=== PATIENT | female | born 1990 | race Caucasian/White ===

== ENCOUNTER 2017-04-22 08:30 | Inpatient (IN) | payer OTHER ==
[2017-04-22] MEDS ORDERED: CARBOPROST 250 MCG/ML SOL IM PRN (21:05)
[2017-04-22] MEDS ORDERED: MEPIVACAINE HCL 1% MPF 30 ML SOL INFIL PRN (21:05)
[2017-04-22] MEDS ORDERED: LACTATED RINGERS 1,000 ML IV PRN (21:05)
[2017-04-22] MEDS ORDERED: SODIUM CHLORIDE 0.9% FLUSH 10 ML SOL IV PRN (21:05)
[2017-04-22] MEDS ORDERED: OXYTOCIN 10000 MU/ML SOL IM PRN (21:05)
[2017-04-22] MEDS ORDERED: FENTANYL 100MCG/2ML SOL IV PRN (21:05)
[2017-04-22] MEDS ORDERED: METHYLERGONOVINE MALEATE 0.2 MG/ML SOL IM PRN (21:05)
[2017-04-22 21:07] LABS: BASOPHILS % (AUTO) 0 % (0-3); EOSINOPHILS % (AUTO) 0 % (0-9); HEMATOCRIT 36 % (35-47); MEAN CORPUSCULAR HGB CONC 33.7 gm/dl (32.0-36.0); MEAN CORPUSCULAR VOLUME 92 fL (81-99); MONOCYTES % (AUTO) 5.9 % (0-12); NEUTROPHILS % (AUTO) 74.7 % (37-80)
[2017-04-23] MEDS ORDERED: TERBUTALINE SULFATE 1 MG/ML SOL SC PRN (04:38)
[2017-04-23] MEDS ORDERED: LACTATED RINGERS 1,000 ML IV SCH (04:45)
[2017-04-23] MEDS ORDERED: OXYTOCIN 10000 MU/ML 20,000 MU in LACTATED RINGERS 1,000 ML IV SCH (04:45)
[2017-04-23] MEDS ORDERED: LACTATED RINGERS 1,000 ML ONE (05:15)
[2017-04-23] MEDS ORDERED: OXYTOCIN 10000 MU/ML SOL ONE ×5 (05:15→22:27)
[2017-04-23] MEDS: SODIUM CHLORIDE 0.9% FLUSH 10 ML SOL IV SCH ×3 (06:01→21:13)
[2017-04-23] MEDS ORDERED: WITCH HAZEL 1 EA PAD TOP PRN (08:03)
[2017-04-23] MEDS ORDERED: NALBUPHINE HCL 20 MG/ML SOL IV PRN (15:03)
[2017-04-23] MEDS ORDERED: DIPHENHYDRAMINE 50 MG/ML SOL IV PRN (15:03)
[2017-04-23] MEDS ORDERED: EPHEDRINE SULFATE 50 MG/ML SOL IV PRN (15:03)
[2017-04-23] MEDS ORDERED: NALOXONE HYDROCHLORIDE 0.4 MG/ML SOL IV PRN (15:03)
[2017-04-23 15:19] LABS: BASOPHILS % (AUTO) 0 % (0-3); EOSINOPHILS % (AUTO) 0 % (0-9); HEMATOCRIT 37 % (35-47); MEAN CORPUSCULAR HGB CONC 34.6 gm/dl (32.0-36.0); MEAN CORPUSCULAR VOLUME 91 fL (81-99); MONOCYTES % (AUTO) 4.7 % (0-12); NEUTROPHILS % (AUTO) 91.9 % (37-80)
[2017-04-23 15:37] LABS: ALBUMIN 2.7 gm/dl (3.4-5.0); POTASSIUM 3.8 mMol/L (3.5-5.1)
[2017-04-23] MEDS: LACTATED RINGERS 1,000 ML IV SCH ×4 (15:40→20:52)
[2017-04-23] MEDS ORDERED: FENTANYL 250 MCG/ 5ML SOL ONE (16:08)
[2017-04-23] MEDS ORDERED: LIDOCAINE HCL 2% MPF SOL ONE ×2 (16:09→21:44)
[2017-04-23] MEDS ORDERED: ROPIVACAINE HYDROCHLORIDE 5 MG/ML SOL ONE (16:09)
[2017-04-23 17:06] LABS: APPEARANCE,URINE Clear; BILIRUBIN,URINE 1+ (NEGATIVE); COLOR,URINE Dark yellow; GLUCOSE, URINE (UA) NEGATIVE (NEGATIVE); KETONES,URINE 4+ (NEGATIVE); LEUKOCYTE ESTERASE ,URINE NEGATIVE (NEGATIVE); NITRATE,URINE NEGATIVE (NEGATIVE); OCCULT BLOOD,URINE TRACE INTACT (NEG-TRACE); PH,URINE 5.5; UROBILINOGEN,URINE 0.2 (0.2-1.0 EU)
[2017-04-23 17:45] LABS: ICTOTEST,URINE NEGATIVE (NEGATIVE)
[2017-04-23] MEDS: ACETAMINOPHEN 500 MG 500 MG TAB PO SCH (21:06)
[2017-04-23] MEDS ORDERED: CEFAZOLIN SODIUM 1 GM PDS IVP ONE (21:38)
[2017-04-23] MEDS ORDERED: CITRIC ACID/SODIUM CITRATE SOL PO ONE (21:38)
[2017-04-23] MEDS ORDERED: FENTANYL 100MCG/2ML SOL ONE ×2 (22:11→22:48)
[2017-04-23] MEDS ORDERED: MIDAZOLAM 2 MG/2 ML SOL ONE (22:13)
[2017-04-23] MEDS ORDERED: PROPOFOL 10 MG/ML EMU IV ONE (22:14)
[2017-04-23] MEDS ORDERED: LACTATED RINGERS 1,000 ML with OXYTOCIN 10000 MU/ML 20 MU IV ONE ×2 (22:17→22:37)
[2017-04-23] MEDS ORDERED: MORPHINE SULFATE 0.5 MG/ML SOL ONE (22:30)
[2017-04-23] MEDS ORDERED: KETOROLAC TROMETHAMINE 30 MG/ML SOL ONE (23:06)
[2017-04-23] MEDS: MORPHINE SULFATE 10 MG/ML SOL ONE ×2 (23:17→23:28)
[2017-04-24] MEDS ORDERED: BENZOCAINE/MENTHOL 1 SPR TOP PRN (01:32)
[2017-04-24] MEDS ORDERED: FLEET ENEMA PR PRN (01:32)
[2017-04-24] MEDS ORDERED: ONDANSETRON HCL 4 MG/2 ML SOL IV PRN (01:32)
[2017-04-24] MEDS ORDERED: DIPHENHYDRAMINE 25 MG CAP PO PRN (01:32)
[2017-04-24] MEDS ORDERED: METHYLERGONOVINE MALEATE 0.2 MG TAB PO PRN (01:32)
[2017-04-24] MEDS ORDERED: WITCH HAZEL 1 EA PAD TOP PRN (01:32)
[2017-04-24] MEDS ORDERED: TEMAZEPAM 15MG 15 MG CAP PO PRN (01:32)
[2017-04-24] MEDS ORDERED: BISACODYL 10 MG SUP PR PRN (01:32)
[2017-04-24 01:53] LABS: ABO B; RH TYPE Positive
[2017-04-24 01:59] VITALS: RESP 20
[2017-04-24] MEDS: LACTATED RINGERS 1,000 ML IV SCH ×6 (02:00→18:32)
[2017-04-24 02:02] LABS: ANTIBODY SCREEN Negative
[2017-04-24] MEDS ORDERED: CEFAZOLIN (PREMIX) 1 GM 1 GM/50 ML SOL IV SCH (03:39)
[2017-04-24] MEDS: SODIUM CHLORIDE 0.9% FLUSH 10 ML SOL IV SCH ×3 (04:16→20:37)
[2017-04-24] MEDS: DOCUSATE SODIUM 100 MG SGL PO SCH ×2 (08:39→20:41)
[2017-04-24] MEDS: KETOROLAC TROMETHAMINE 30 MG/ML SOL IV PRN ×3 (08:39→20:41)
[2017-04-24] MEDS: ACETAMINOPHEN 500 MG 500 MG TAB PO SCH ×3 (12:02→20:37)
[2017-04-24] MEDS: APAP/HYDROCODONE 325/5 TAB PO PRN ×3 (12:40→22:51)
[2017-04-25] MEDS: LACTATED RINGERS 1,000 ML IV SCH ×2 (02:23→05:35)
[2017-04-25] MEDS: IBUPROFEN 600 MG TAB PO PRN ×2 (04:27→14:59)
[2017-04-25] MEDS ORDERED: IBUPROFEN 600 MG TAB ONE (04:27)
[2017-04-25] MEDS: SODIUM CHLORIDE 0.9% FLUSH 10 ML SOL IV SCH ×2 (05:34→12:40)
[2017-04-25 09:19] LABS: BASOPHILS % (AUTO) 0 % (0-3); EOSINOPHILS % (AUTO) 0 % (0-9); HEMATOCRIT 32 % (35-47); MEAN CORPUSCULAR HGB CONC 34.7 gm/dl (32.0-36.0); MEAN CORPUSCULAR VOLUME 93 fL (81-99); MONOCYTES % (AUTO) 2.1 % (0-12); NEUTROPHILS % (AUTO) 90.7 % (37-80)
[2017-04-25] MEDS: APAP/HYDROCODONE 325/5 TAB PO PRN ×2 (09:22→14:14)
[2017-04-25] MEDS: DOCUSATE SODIUM 100 MG SGL PO SCH (09:22)
[2017-04-25] MEDS: ACETAMINOPHEN 500 MG 500 MG TAB PO SCH ×2 (12:40→14:58)
[2017-04-25] MEDS ORDERED: ACETAMINOPHEN 500 MG 500 MG TAB ONE ×2 (14:57→14:59)
[2017-04-25 15:31] VITALS: BP 111/65; PULSE 104; TEMP 98.3; O2SAT 96
== END 2017-04-25 15:10 | disposition home or self-care (01) | DRG 765 ==
LOC: OB 19:00 → OBSVTOIN 19:00
PROVIDERS: ADMIT Family Medicine; ATTEND Family Medicine
PROC: 0U7C7ZZ Dilation of Cervix, Via Natural or Artificial Opening (ICD-10-PCS; principal; 2017-04-22)
PROC: 10D00Z1 Extraction of Products of Conception, Low, Open Approach (ICD-10-PCS; 2017-04-23)
PROC: 3E0P3VZ Introduction of Hormone into Female Reproductive, Percutaneous Approach (ICD-10-PCS; 2017-04-23)
PROC: 0U7C7ZZ Dilation of Cervix, Via Natural or Artificial Opening (ICD-10-PCS; 2017-04-23)
DX: O48.0 Post-term pregnancy (principal); O75.2 Pyrexia during labor, not elsewhere classified; E86.0 Dehydration; Z37.0 Single live birth; O62.0 Primary inadequate contractions; Z3A.40 40 weeks gestation of pregnancy; O76 Abnormality in fetal heart rate and rhythm complicating labor and delivery; O75.89 Other specified complications of labor and delivery
CPT/HCPCS: 36415; 59025; 80053; 81001; 85018; 85025; 86850; 86900; 86901; 93005; 94762; 99070; J0670; J0690; J1885; J2250; J2270; J2274; J2590; J2795; J3010; J3105; J2704

== ENCOUNTER 2017-05-03 22:23 | Emergency (ER) | payer OTHER ==
[2017-05-03 22:39] VITALS: RESP 20
[2017-05-03 23:22] VITALS: PULSE 70; TEMP 97.2; O2SAT 97
[2017-05-03 23:27] LABS: BASOPHILS % (AUTO) 0 % (0-3); EOSINOPHILS % (AUTO) 1 % (0-9); HEMATOCRIT 31 % (35-47); MEAN CORPUSCULAR HGB CONC 33.7 gm/dl (32.0-36.0); MEAN CORPUSCULAR VOLUME 92 fL (81-99); MONOCYTES % (AUTO) 6.2 % (0-12); NEUTROPHILS % (AUTO) 71.6 % (37-80)
[2017-05-03 23:40] LABS: CALCIUM 8.1 mg/dl (8.5-10.1); POTASSIUM 4.2 mMol/L (3.5-5.1)
[2017-05-03 23:52] VITALS: BP 117/83
== END 2017-05-04 00:03 | disposition home or self-care (01) | DRG 950 ==
LOC: ED 22:23
DX: S31.109D Unspecified open wound of abdominal wall, unspecified quadrant without penetration into peritoneal cavity, subsequent encounter (principal); Z87.898 Personal history of other specified conditions; Z98.890 Other specified postprocedural states
CPT/HCPCS: 80048; 85025; 99282